=== PATIENT | male | born 1970 | race Two or more races ===

== ENCOUNTER 2016-12-08 22:14 | Emergency (ER) | payer SELFPAY ==
[~2016-12-08] VITALS: Ht 170.2 cm; Wt 68.7 kg
[2016-12-09] MEDS ORDERED: AMLODIPINE BESYL5 MG PO (01:04)
[2016-12-09 01:12] LABS: BASOPHIL COUNT 0.1 K/uL (0-0.1); EOSINOPHIL COUNT 0.2 K/uL (0-0.3); INSTRUMENT ABS NEUTROPHIL CT 1.3 K/uL; LYMPHOCYTE COUNT 1.9 K/uL (1.0-2.8); MCH 31.2 PG (29.0-34.0); MCHC 33.3 G/DL (30.0-36.0); MCV 93.5 FL (86-99); MEAN PLAT.VOLUME 9.9 uM^3 (9.0-12.4); MONOCYTE (%) 8.8 % (3-12); MONOCYTE COUNT 0.3 K/uL (0-0.8); NEUTROPHIL (%) 35.5 % (45-76); NEUTROPHIL COUNT 1.3 K/uL (1.8-6.4); PLATELET COUNT 259 K/uL (156-360); RBC DIS.WIDTH-CV 13.2 % (11.8-14.6); RBC DIS.WIDTH-SD 45.5 % (39-53); RED BLOOD COUNT 4.49 M/uL (4.00-5.50); WHITE BLOOD COUNT 3.8 K/uL (4.1-10.2)
[2016-12-09 01:23] LABS: CHLORIDE 107 mEq/L (99-109); POTASSIUM 3.7 mEq/L (3.7-5.4); SODIUM 142 mEq/L (136-147)
[2016-12-09 01:25] LABS: GLUCOSE 86 mg/dL (70-99)
[2016-12-09 01:26] LABS: ANION GAP 9 MEQ/L (2-14)
[2016-12-09 01:27] LABS: TOTAL BILIRUBIN 0.4 mg/dL (0.0-1.0)
[2016-12-09 01:28] LABS: ALKALINE PHOSPHATASE 48 IU/L (3-129)
[2016-12-09 01:29] LABS: GFR ESTIMATE (CALCULATED) > 59 mL/min/
[2016-12-09 01:30] LABS: UREA NITROGEN (BUN) 15 mg/dL (9-23)
[2016-12-09] MEDS ORDERED: FIORICET,ESG1 TABLET PO (03:13)
[2016-12-09 03:45] VITALS: BP 143/90
== END 2016-12-09 03:48 | disposition home or self-care (01) ==
LOC: EME 22:14
PROVIDERS: Emergency Medicine
DX: R51 Headache (principal); I10 Essential (primary) hypertension; I25.2 Old myocardial infarction; Z86.73 Personal history of transient ischemic attack (TIA), and cerebral infarction without residual deficits; Z85.46 Personal history of malignant neoplasm of prostate; F17.200 Nicotine dependence, unspecified, uncomplicated
CPT/HCPCS: 70496; 70498; 80053; 85025; 99281; 99285; J7120